=== PATIENT | female | born 1980 | race Caucasian/White ===

== ENCOUNTER 2025-01-07 10:46 | Emergency (ER) | payer MEDICAID ==
[~2025-01-07] VITALS: Ht 152.4 cm; Wt 100.0 kg
[~2025-01-07 10:46] MED LIST: BUPR100T4 PO; CLON-850 PO
[2025-01-07 11:09] VITALS: BP 129/84; PULSE 86; RESP 18; TEMP 97.1; O2SAT 100
[2025-01-07] MEDS ORDERED: LEVE250T4 PO (11:31)
--- NOTE | 2025-01-07 11:32 | Physician Documentation ---
HPI ~ General Chief Complaint: Medication Request Stated Complaint: MED REFILL Time Seen by MD: 11:12 History of Present Illness HPI Comments 44-year-old female presents to the ED for medical clearance to go to [facility] States that she is unable to attend the program because she is no longer on seizure meds does not recall which med she was on. reports that she had a seizure two weeks ago. Medication Reconciliation Allergies: Coded Allergies: Penicillins (Verified Allergy, Unknown, 01/07/25) Scheduled Bupropion Hcl (Wellbutrin), 1 TABLET PO BID Clonazepam (Klonopin), 0.5 MG PO BID Levetiracetam (Keppra), 1 TAB PO Q12H Past Medical History Past Medical History: No Pertinent History Alcohol Use: None Drug Use: methamphetamine Review of Systems All Other Systems at this time: Reviewed and Negative ROS As stated above in the HPI, otherwise all systems are reviewed and negative. Physical Exam Physical Exam Vital Signs: Temperature: 97.1, Source: Temporal, Heart Rate: 86, Respiratory Rate: 18, BP: 129/84, Pulse Oximetry: 100, Weight: 100.000 Physical Exam General: Alert, no apparent distress. HEENT: PERRL, EOMI, no injection, moist mucous membranes. Respiratory: Lungs clear, no respiratory distress. Chest: No accessory muscle use. Cardiovascular: Regular rate and rhythm, no murmurs. Gastrointestinal: Soft, nontender, nondistended. Bowels sounds present. Extremities: Normal range of motion, no deformity. Neurologic: Oriented x4. Psychiatric: Normal mood and affect. Skin: Normal color, warm and dry. No edema, no ecchymosis. Progress Results/Orders Results/Orders Vital Signs 01/07/25 11:09 Temp 97.1 Pulse 86 Resp 18 B/P (MAP) 129/84 Pulse Ox 100 Medical Decision Making Findings Patient does not present acutely ill or under the influence. Based on her reported history of having a seizure two weeks ago I am willing to start her on a low dose of Keppra and have her follow up with primary care and she can attend [facility] Differential Dx:Considerations: Include: Adverse circumstances, Economic, Psychosocial, Medical services unavail., Medication refill, Medication non- compliance, Other Departure Disposition: 01 HOME / SELF CARE / HOMELESS Impression: Primary Impression: Seizure disorder Condition: Stable Discharge Instructions: Medicine Refill at the Emergency Department Additional Instructions: Cleared for recovery at [facility] Referrals: NO PRIMARY CARE PROVIDER (PCP) Prescriptions Levetiracetam (Keppra) 250 Mg Tablet 1 TAB PO Q12H for 30 Days, #60 TAB 0 Refills Prov: MICKEY THOMAS NP 01/07/25 Education Educated: Patient Educated regarding: diagnosis Signature Scribe Signature: v Attestation: Scribed for Mickey Thomas Rn Lab by Mickey Farmer NP . 01/07/25 17:40 MICKEY THOMAS NP Jan 07, 2025 11:32
== END 2025-01-07 11:44 | disposition home or self-care (01) ==
LOC: ER 10:47
DX: G40.909 Epilepsy, unspecified, not intractable, without status epilepticus (principal); F15.90 Other stimulant use, unspecified, uncomplicated; Z76.0 Encounter for issue of repeat prescription; Z88.0 Allergy status to penicillin; Z79.899 Other long term (current) drug therapy
CPT/HCPCS: 99281